=== PATIENT | male | born 1955 | race Caucasian/White ===

== ENCOUNTER → 2018-04-11 07:15 | Outpatient (CLI) | payer BC, SELFPAY ==
[2018-04-11 08:52] LABS: AST(SGOT) 29 U/L (15-37); Alanine Aminotransfer ALT/SGPT 36 U/L (16-61); Albumin, Serum 4.2 g/dL (3.2-5.0); Alkaline Phosphatase 73 U/L (45-117); Bilirubin, Direct 0.18 mg/dL (0.00-0.30); Cholesterol 132 mg/dL (200); Globulin 3.2 g/dL (2.2-4.2); High Density Lipoprotein 32 mg/dL; Protein, Total 7.4 g/dL (6.4-8.2); Triglycerides 79 mg/dL; Very Low Density Lipoprotein 16 mg/dL (5-40)
== END ==
PROVIDERS: Visit Provider Internal Medicine Cardiovascular Disease
DX: E78.5 Hyperlipidemia, unspecified (principal)
CPT/HCPCS: 36415; 80061; 80076

== ENCOUNTER → 2018-10-05 08:42 | Outpatient (CLI) | payer BC, SELFPAY ==
[2018-10-05 10:05] LABS: AST(SGOT) 30 U/L (15-37); Alanine Aminotransfer ALT/SGPT 46 U/L (16-61); Albumin, Serum 4.1 g/dL (3.2-5.0); Alkaline Phosphatase 68 U/L (45-117); Bilirubin, Direct 0.17 mg/dL (0.00-0.30); Cholesterol 163 mg/dL (200); Globulin 3.3 g/dL (2.2-4.2); High Density Lipoprotein 35 mg/dL; Protein, Total 7.4 g/dL (6.4-8.2); Triglycerides 110 mg/dL; Very Low Density Lipoprotein 22 mg/dL (5-40)
== END ==
PROVIDERS: Family Provider Nurse Practitioner Adult Health; PCP Nurse Practitioner Adult Health; Referring Provider Internal Medicine Cardiovascular Disease; Visit Provider Internal Medicine Cardiovascular Disease
DX: E78.5 Hyperlipidemia, unspecified (principal)
CPT/HCPCS: 36415; 80061; 80076

== ENCOUNTER → 2020-09-29 08:10 | Outpatient (CLI) | payer BC, SELFPAY ==
[2020-09-26 12:40] VITALS: BMI 27.8
[2020-09-29 09:37] LABS: AST(SGOT) 31 U/L (15-37); Alanine Aminotransfer ALT/SGPT 40 U/L (16-61); Albumin, Serum 4.3 g/dL (3.2-5.0); Alkaline Phosphatase 86 U/L (45-117); Bilirubin, Direct 0.21 mg/dL (0.00-0.30); Cholesterol 178 mg/dL (200); Globulin 3.3 g/dL (2.2-4.2); High Density Lipoprotein 44 mg/dL; Protein, Total 7.6 g/dL (6.4-8.2); Triglycerides 73 mg/dL; Very Low Density Lipoprotein 15 mg/dL (5-40)
== END ==
PROVIDERS: PCP Nurse Practitioner Adult Health; Referring Provider Internal Medicine Cardiovascular Disease; Visit Provider Internal Medicine Cardiovascular Disease
DX: E78.00 Pure hypercholesterolemia, unspecified (principal)
CPT/HCPCS: 36415; 80061; 80076

== ENCOUNTER → 2021-01-26 06:09 | Outpatient (CLI) | payer BC, SELFPAY ==
[2021-01-17 11:17] VITALS: BMI 27.2
--- NOTE | 2021-01-26 06:14 | ECHOD_ITS ---
Reason For Study: Afib, Aflutter Procedure This was a 2D Doppler, Color Flow transthoracic echocardiogram. Exam performed in department. Left Ventricle Normal LV size. Left ventricular systolic function is normal. The estimated ejection fraction is 60 %. Stage 1 diastolic dysfunction. No regional wall motion abnormalities noted. Right Ventricle Normal RV size. Normal systolic function. Atria Normal left atrium. Normal right atrium. Mitral Valve Mild focal mitral valve thickening. Mild (1+) mitral valve insufficiency. Tricuspid Valve Normal tricuspid valve. Mild (1+) tricuspid valve insufficiency. Aortic Valve Normal aortic valve. Trisinus/trileaflet aortic valve. Pulmonic Valve Normal pulmonic valve. Great Vessels Normal aortic root. The pulmonary artery is normal size. Normal inferior vena cava. Pericardium/Pleural No pericardial effusion. MMode/2D Measurements & Calculations LVIDd: 3.7 cm IVSd: 1.0 cm Ao root diam: 3.6 cm LVIDs: 2.2 cm LVPWd: 1.0 cm RVDd: 3.3 cm FS: 40.6 % LAV(MOD-bp): 64.8 ml LVAd ap4: 30.9 cm2 SV(MOD-sp4): 61.1 ml LAV(MOD-bp) Indexed: 28.8 ml/m2 EDV(MOD-sp4): 103.3 ml LAV(MOD-sp2): 70.3 ml EDV(sp4-el): 108.3 ml LAV(MOD-sp4): 53.7 ml LVAs ap4: 18.3 cm2 ESV(MOD-sp4): 42.2 ml ESV(sp4-el): 43.0 ml EF(MOD-sp4): 59.2 % EF(sp4-el): 60.3 % SV(sp4-el): 65.4 ml LA A4 area: 18.7 cm2 LA dimension(2D): 3.5 cm RA A4 area: 10.3 cm2 Doppler Measurements & Calculations MV E max earnest: 55.1 cm/sec Lat Peak E' Earnest: 7.3 cm/sec Med Peak E' Earnest: 3.4 cm/sec MV A max earnest: 76.2 cm/sec E/E' lat: 7.6 E/E' med: 16.1 MV E/A: 0.72 Ao V2 max: 115.9 cm/sec LV V1 max: 108.0 cm/sec PA V2 max: 124.6 cm/sec Ao max P.4 mmHg LV V1 max P.7 mmHg Ao V2 mean: 81.8 cm/sec Ao mean P.9 mmHg Ao V2 VTI: 24.2 cm TR max earnest: 229.0 cm/sec TR max P.0 mmHg Interpretation Summary Normal LV size. Left ventricular systolic function is normal. The estimated ejection fraction is 60 %. Stage 1 diastolic dysfunction. Mild (1+) tricuspid valve insufficiency. Mild (1+) mitral valve insufficiency. Ordering Physician: Danae Leblanc Referring Physician: An Banegas Performed By: Lynsey Alvarez, EUGENE, RVT
--- NOTE | 2021-01-26 16:35 | STRESSREP ---
Stress Test Report Exercise myocardial perfusion stress test. 65-year-old male with a history of atrial fibrillation. Stress protocol: Resting EKG demonstrates normal sinus rhythm with a rate of 76 bpm right bundle branch block is noted. Resting blood pressure is 1 and 24/90 2 mmHg. Patient exercised according to regular [facility] protocol for a total duration of 9 minutes. The maximum heart rate attained was 160 bpm which was 103% of max impacted heart rate the maximum workload was 10.4 metabolic equivalents. The patient maintained sinus rhythm throughout the recording. No atrial fibrillation was noted. At rest there were no ST or T wave changes noted to suggest ischemia and at peak exercise no ST or T wave changes were noted to suggest ischemia. The peak blood pressure was 170/84 mmHg and the rate-pressure product was 21,900 the test was terminated due to the target heart rate being achieved. Myocardial perfusion protocol. 14.1 mCi of technetium 99m sestamibi was injected at rest. The patient exercised according to regular [facility] protocol and at peak exercise of 9 minutes 43.7 mCi of technetium 99m sestamibi was injected stress images were obtained stress and rest images were reconstructed and compared in the short axis vertical long horizontal long axis. Gated images were also obtained Perfusion SPECT analysis: Review of the images demonstrate normal uptake of tracer noted in all areas of the myocardium on the stress images.. The resting images similarly demonstrate normal uptake of tracer noted in all areas of myocardium. No areas of reversibility are noted to suggest ischemia or no previous infarct is noted. Gated SPECT analysis: The gated ejection fraction is 70%. Conclusion: Normal exercise myocardial perfusion stress test at a high workload. No atrial fibrillation noted. Preserved ejection fraction.
== END ==
PROVIDERS: PCP Nurse Practitioner Adult Health; Visit Provider Internal Medicine Cardiovascular Disease
DX: I48.0 Paroxysmal atrial fibrillation (principal); I10 Essential (primary) hypertension
CPT/HCPCS: 78452; 93017; 93306; A9500; A4216

== ENCOUNTER → 2022-11-25 | Outpatient (CLI) | payer OTHER, SELFPAY ==
--- NOTE | 2022-11-25 16:44 | STRESSREP_ITS ---
Stress Test Report Exercise myocardial perfusion stress test. 67-year-old man with history of chest pain Stress protocol: Resting EKG demonstrates normal sinus rhythm with a right bundle branch block and a rate of 71 bpm resting blood pressure is 132/84 mmHg. The patient exercised according to the regular [facility] protocol for a total duration of 7 minutes and 15 seconds attaining a maximum heart rate of 153 bpm which was 100% of max impacted heart rate the maximum workload was 10.1 metabolic equivalents. At rest there were no ST or T wave changes noted suggest ischemia and at peak exercise upsloping ST changes only were noted which did not meet the criteria for ischemia. No clinical angina was noted the test was terminated due to the target heart rate being achieved. The peak blood pressure was 190/82 mmHg. Rate-pressure product was 21,700. Myocardial perfusion protocol. 14.3 mCi of technetium 99m sestamibi was injected at rest. The patient e xercised according to regular [facility] protocol for total duration of 7 minutes 15 seconds and at peak exercise 44.4 mCi of technetium 99m sestamibi was injected stress images were obtained stress and rest images were reconstructed in comparing the short axis vertical long and horizontal long axis. Gated images were also obtained. Perfusion SPECT analysis: Review of the stress images demonstrate normal uptake of tracer noted in all areas of the myocardium. The resting images similarly demonstrate normal uptake of tracer noted in all areas of the myocardium. No areas of reversibility are noted to suggest ischemia no previous infarct was noted. Gated SPECT analysis: The gated ejection fraction is 66%. Conclusion: Normal exercise myocardial perfusion stress test at a high workload Preserved ejection fraction.
== END | disposition home or self-care (01) ==
PROVIDERS: PCP Nurse Practitioner Adult Health; Referring Provider Physician Assistant Medical; Visit Provider Physician Assistant Medical
DX: R07.9 Chest pain, unspecified (principal); E78.2 Mixed hyperlipidemia
CPT/HCPCS: 78452; 93017; A9500; A4216

== ENCOUNTER → 2025-02-25 | Outpatient (CLI) | payer OTHER, SELFPAY ==
[2025-02-25 18:02] LABS: Cholesterol 167 mg/dL (<=200); High Density Lipoprotein 26 mg/dL; Low Density Lipoprotein Calc. 41 mg/dL; Triglycerides 500 mg/dL; Very Low Density Lipoprotein 100 mg/dL (5-40); cholesterol:hdl ratio screen 6.47
== END | disposition home or self-care (01) ==
LOC: LAB 15:50
PROVIDERS: PCP Nurse Practitioner Adult Health; Referring Provider Physician Assistant Medical; Visit Provider Physician Assistant Medical
DX: E78.2 Mixed hyperlipidemia (principal)
CPT/HCPCS: 36415; 80061